=== PATIENT | male | born 1975 | race Caucasian/White ===

== ENCOUNTER 2020-12-16 11:36 | Outpatient (REF) | payer OTHER, SELFPAY | END 2020-12-16 11:37 | disposition home or self-care (01) | LOC: HO.LAB 11:36 | PROVIDERS: Visit Provider Internal Medicine | DX: Z20.822 Contact with and (suspected) exposure to COVID-19 (principal) | CPT/HCPCS: C9803; U0003; U0005 ==

== ENCOUNTER 2020-12-27 11:47 | Outpatient (REF) | payer OTHER, SELFPAY | END 2020-12-27 11:48 | disposition home or self-care (01) | LOC: HO.LAB 11:47 | PROVIDERS: Visit Provider Internal Medicine | DX: Z20.822 Contact with and (suspected) exposure to COVID-19 (principal) | CPT/HCPCS: C9803; U0003; U0005 ==

== ENCOUNTER 2023-12-15 11:39 | Emergency (ER) | payer OTHER, SELFPAY ==
--- NOTE | ~2023-12-15 | XR_ITS ---
EXAMINATION: XR CHEST CLINICAL INFORMATION: Shortness of breath COMPARISON: None available. TECHNIQUE: Frontal view of the chest was obtained. FINDINGS: The lungs are well-inflated. There is no gross pneumothorax. No significant pleural effusion. Heart size is normal. Mild degenerative changes in the thoracic spine. No focal consolidation. XR/XR chest 1V IMPRESSION: No evidence of pneumonia. This study was presented today December 15, 2023 for interpretation. Stat results provided at this time as requested by referring provider.
[2023-12-15 11:40] VITALS: BP 124/76; PULSE 87; RESP 20; TEMP 36.8; O2SAT 97; BMI 31.7
--- NOTE | 2023-12-15 11:41 | ED_ITS ---
HPI - SOB/Dyspnea General Chief Complaint: Dyspnea Stated Complaint: sob Time Seen by Provider: 12/15/23 12:06 Source: patient Mode of arrival: ambulatory Limitations: no limitations History of Present Illness ED Provider: Dr. Carlisle HPI Narrative: 48-year-old male otherwise healthy presents to emergency department complaining of cough and shortness of breath past 2 weeks. Patient was initially vaccine for COVID but states he will never get another vaccine after getting for the past several years. He states his father was here week ago he states was diagnosed with pneumonia. He states he also had a target rash 6 months ago and every once in a while has pain to his restroom wants testing for Lyme. Denies any falls or injuries denies chest pain nausea vomiting or diarrhea. MD elicited complaint: shortness of breath and cough Related Data Previous Rx's ?Medication ?Instructions ?Recorded benzonatate 100 mg capsule 100 mg PO BID PRN cough #20 caps 12/15/23 Allergies Allergy/AdvReac Type Severity Reaction Status Date / Time bee pollen [BEE STINGS] Allergy Unknown 1 Verified 12/15/23 11:43 Review of Systems 2 Review of Systems: Review of systems: General: Patient denies any fever chills recent illness or falls Musculoskeletal: Denies back pain or body aches or other injuries HEENT: denies headache, runny nose, ear pain Respiratory: shortness of breath, cough Cardiovascular: no chest pain or palpitations : denies dysuria, frequency Abdomen: no nausea vomiting denies abdominal pain Extremities: no swelling, no pain Skin: no diaphoresis Yes all other systems are reviewed and are negative PMFSH Social History Social History Advance Directives: No Advance Directives Information Provided: Yes Physical Exam 2 Vital Signs: Vital Signs: Last Vital Signs Temp 99.1 F 12/15/23 12:00 Pulse 85 12/15/23 12:00 Resp 20 12/15/23 12:00 BP 106/78 12/15/23 12:00 Pulse Ox 94 12/15/23 12:00 O2 Del Method Room Air 12/15/23 11:40 BMI result Body Mass Index 31.7 General: Well-appearing well-nourished in no signs of distress HEENT: Normocephalic atraumatic Neck: No signs of JVD, no masses no tenderness or lymphadenopathy Cardiovascular: Regular rate and rhythm Respiratory: Clear to auscultation bilaterally Abdomen: Soft nontender no masses Extremities: Normal pedal pulses no signs of edema Skin: Dry warm no rashes Back: No tenderness full ROM Course Course Course Narrative: This is a Rapid Medical Exam performed in triage by Sylvia Perez PA-C. Full HPI, ROS and PE to be performed by primary ED provider. 48 year-old M w/ PMHx presenting to the ED c/o SOB x1.5 weeks w/productive cough. Sx exacerbated by heat. States I think I have Lyme disease States he had the bulls-eye rash a few weeks ago and now has myalgias & hot spots PE: Lungs CTA, talking in complete sentences Plan: EKG, Viral testing, CXR, labs Reevaluation(s) Reevaluation #1: 1254 x-ray labs and swabs were all negative I did explain to the patient that his Lyme will take some time to come back I do feel comfortable discharging the patient home with some Wilmanon Linda Medications Administered Discontinued Medications Generic Name Dose Route Start Last Admin Trade Name Freq PRN Reason Stop Dose Admin Benzonatate 100 mg 12/15/23 12:07 12/15/23 12:40 Benzonatate 100 Mg Capsule PO 12/15/23 12:08 100 mg ONCE ONE Administration Medical Decision Making Medical Decision Making [facility] Narrative: Patient with multiple complaints I do not think are related patient looks well has normal sats clear lung sounds I will continue with the x-ray and labs and swabs as well as Lyme testing I did explain to the patient lab testing come back in several days I do not think he needs to be treated at this time it has been several months I think can follow up with his doctor. Differential Diagnosis Differential Diagnoses: The differential diagnosis associated with the presentation includes For his body aches and bull's eye rash when testing was sent as far as his cough we will give the patient has Tessalon Linda sent for x-ray. For COVID flu and RSV. Lab Data [facility] Lab Attestation statement: I reviewed the patient's lab results. 12/15/23 12:00 12/15/23 12:00 Labs: Lab Results 12/15/23 Range/Units 12:00 WBC 8.5 (4.8-10.8) X10*3/uL RBC 4.95 (4.60-5.80) X10*6/uL Hgb 15.6 (14.0-18.0) g/dl Hct 44.2 (42.0-52.0) % MCV 89.3 (80.0-98.0) fL MCH 31.5 (27.0-33.0) pg MCHC 35.3 (31.0-36.0) g/dl RDW 12.3 (11.0-16.0) % Plt Count 145 L (160-400) X10*3/uL MPV 11.2 (9.4-12.4) fL Immature Gran % (Auto) 0.4 (0.0-0.4) % Neut % (Auto) 64.6 (45-73) % Lymph % (Auto) 26.0 (20-40) % [place] % (Auto) 6.3 (2-11) % Eos % (Auto) 2.2 (0-4) % Baso % (Auto) 0.5 (0-2) % Lymph # (Auto) 2.2 (1.2-4.9) X10*3/uL [place] # (Auto) 0.5 (0.1-1.2) X10*3/uL Eos # (Auto) 0.2 (0.0-0.4) X10*3/uL Baso # (Auto) 0.0 (0.0-0.2) X10*3/uL Abs Immat Gran (auto) 0.03 (0.00-0.03) X10*3/uL Absolute Neuts (auto) 5.5 (2.0-8.3) x10*3/uL Absolute Nucleated RBC 0.000 (0.0-0.012) X10*3/uL Nucleated RBC % (auto) 0.0 (0.0-0.2) /100WBC Sodium 139 (135-145) mmol/L Potassium 4.5 (3.3-5.1) mmol/L Chloride 106 (96-108) mmol/L Carbon Dioxide 26 (22-29) mmol/L Anion Gap 12 (12-20) BUN 12 (9-16) mg/dL Creatinine 0.98 (0.5-1.4) mg/dL Estim Creat Clear Calc 119.2 Estimated GFR > 60 Random Glucose 116 H (60-115) mg/dL Calcium 9.6 (8.4-10.2) mg/dL Magnesium 2.2 (1.6-2.6) mg/dL Total Bilirubin 0.6 (0.0-1.0) mg/dL Direct Bilirubin 0.2 (0.0-0.5) mg/dL AST 24 (5-37) U/L ALT 18 (0-40) U/L Alkaline Phosphatase 107 (39-117) U/L Troponin I High Sens < 2.7 (<3.5-35.0) ng/L Total Protein 7.8 (6.5-8.0) g/dL Albumin 4.4 (3.5-5.0) g/dL Influenza Type A (PCR) NEGATIVE (Negative) Influenza Type B (PCR) NEGATIVE (Negative) RSV RNA Qual (PCR) NEGATIVE (Negative) SARS-CoV-2 RNA (RT-PCR) NEGATIVE (Negative) Independent Interpretation I performed an independent interpretation of an: Plain X-Ray Radiology Impression Discussion of test interpretation with radiology: I have reviewed the radiologist's reading. Independent Historian Clinical information obtained from an independent historian. History obtained from or confirmed by: Other External Record Review Patient has never been here before there was no previous records to review Discharge Plan Discharge Clinical Impression: Cough, Bronchitis Patient Disposition: Home, Self-Care Instructions: Acute Bronchitis (ED), Acute Cough (ED) Additional Instructions: You were seen today for a rash 6 months ago with intermittent wrist pain and a cough for 2 weeks. You had swabs sent for Lyme that take a few days to come back. You can follow up with your doctor or through the patient portal for your results. You had a XR labs and swabs for your cough which were all normal. Please call to follow up with your doctor. Prescriptions: New benzonatate 100 mg capsule 100 mg PO BID PRN (Reason: cough) Qty: 20 0RF Print Language: Lithuanian
--- NOTE | 2023-12-15 11:43 | ECG_ITS ---
Test Reason : SOB Blood Pressure : / mmHG Vent. Rate : 085 BPM Atrial Rate : 085 BPM P-R Int : 170 ms QRS Dur : 078 ms QT Int : 356 ms P-R-T Axes : 048 003 038 degrees QTc Int : 423 ms Normal sinus rhythm Normal ECG When compared with ECG of 12-DEC-2018 11:07, No significant change was found Referred By: Sylvia Perez Electronically Signed By:GLO VANEGAS MD
[2023-12-15 12:00] VITALS: BP 106/78; PULSE 85; RESP 20; TEMP 37.3; O2SAT 94
[2023-12-15 12:05] LABS: MANUAL DIFF FLAG NO
[2023-12-15 12:07] LABS: Basophils Percent Auto 0.5 % (0-2); Eosinophils Absolute Auto 0.2 X10*3/uL (0.0-0.4); Eosinophils Percent Auto 2.2 % (0-4); Hematocrit 44.2 % (42.0-52.0); Hemoglobin 15.6 g/dl (14.0-18.0); Imm Gran Abs Auto 0.03 X10*3/uL (0.00-0.03); Imm Gran Pct Auto 0.4 % (0.0-0.4); Lymphocytes Absolute Auto 2.2 X10*3/uL (1.2-4.9); Mean Corpuscular HGB Conc 35.3 g/dl (31.0-36.0); Mean Corpuscular Hemoglobin 31.5 pg (27.0-33.0); Mean Corpuscular Volume 89.3 fL (80.0-98.0); Mean Platelet Volume 11.2 fL (9.4-12.4); Monocytes Absolute Auto 0.5 X10*3/uL (0.1-1.2); Monocytes Percent Auto 6.3 % (2-11); Neutrophils Absolute Auto 5.5 x10*3/uL (2.0-8.3); Neutrophils Percent Auto 64.6 % (45-73); Platelet Count 145 X10*3/uL (160-400); Red Blood Count 4.95 X10*6/uL (4.60-5.80); Red Cell Distribution Width 12.3 % (11.0-16.0); White Blood Count 8.5 X10*3/uL (4.8-10.8)
[2023-12-15] MEDS: Benzonatate 100 MG CAPSULE PO (12:40)
--- NOTE | 2023-12-15 12:42 | PC.NURSE ---
Medicated per MAR.
[2023-12-15 12:44] LABS: Troponin-I High Sensitivity < 2.7 ng/L (<3.5-35.0)
[2023-12-15 12:47] LABS: Influenza A PCR NEGATIVE (Negative); Influenza B PCR NEGATIVE (Negative); Resp Syncy Virus RNA Qual PCR NEGATIVE (Negative); SARS COV2 PCR INHOUSE NEGATIVE (Negative)
[2023-12-15 12:50] LABS: Alanine Aminotransferase 18 U/L (0-40); Albumin Level 4.4 g/dL (3.5-5.0); Alkaline Phosphatase 107 U/L (39-117); Anion Gap 12 (12-20); Aspartate Amino Transferase 24 U/L (5-37); Bilirubin Direct 0.2 mg/dL (0.0-0.5); Bilirubin Total 0.6 mg/dL (0.0-1.0); Blood Urea Nitrogen 12 mg/dL (9-16); Calcium 9.6 mg/dL (8.4-10.2); Carbon Dioxide 26 mmol/L (22-29); Chloride 106 mmol/L (96-108); Creatinine Clr Calc Pharmacy 119.2; Estimated Glomerular Filt Rate > 60; Glucose Random 116 mg/dL (60-115); Magnesium 2.2 mg/dL (1.6-2.6); Potassium 4.5 mmol/L (3.3-5.1); Sodium 139 mmol/L (135-145); Total Protein 7.8 g/dL (6.5-8.0)
[2023-12-15 13:20] VITALS: BP 106/78; PULSE 85; RESP 20; TEMP 37.3; O2SAT 94
[2023-12-16 12:14] LABS: Lyme Abs Screen <0.90 index
== END 2023-12-15 13:20 | disposition home or self-care (01) ==
PROVIDERS: Physician Assistant; Emergency Provider Student in an Organized Health Care Education/Training Program
DX: J40 Bronchitis, not specified as acute or chronic (principal); R06.02 Shortness of breath; R05.9 Cough, unspecified; Z03.818 Encounter for observation for suspected exposure to other biological agents ruled out; Z79.899 Other long term (current) drug therapy
CPT/HCPCS: 0241U; 36415; 71045; 80048; 80076; 83735; 84484; 85025; 86617; 86618; 93005; 99283; 99284

== ENCOUNTER → 2023-12-15 11:43 | Outpatient (BNV) | payer SELFPAY | PROVIDERS: Emergency Provider Student in an Organized Health Care Education/Training Program; Visit Provider Internal Medicine Cardiovascular Disease | DX: R06.02 Shortness of breath (principal) | CPT/HCPCS: 93010 ==

== ENCOUNTER 2025-02-02 16:30 | Emergency (ER) | payer OTHER, SELFPAY ==
--- NOTE | ~2025-02-02 | CT_ITS ---
CLINICAL HISTORY: R flank pain CT abdomen and pelvis without contrast Comparison: None provided Findings: Hiatal hernia. Cholelithiasis. Hepatomegaly, 20.3 cm. No bowel obstruction, pneumoperitoneum, or pneumatosis. No nephroliths identified. Left renal upper pole cortical scarring. The appendix is within normal limits. Diverticulosis. Prostate is within normal limits. Right inguinal hernia with adipose tissue in lumen, 3.7 x 3 x 9.[address] evidence of incarceration or strangulation. Mild osteopenia. The prostate is hypertrophic, 5.3 cm. IMPRESSION: 1. No acute intraabdominal or pelvic pathology. 2. Hepatomegaly, measuring 20.3 cm. 3. Right inguinal hernia containing adipose tissue, measuring 3.7 x 3 x 9.6 cm, without evidence of incarceration or strangulation. 4. Cholelithiasis. 5. Hypertrophic prostate. 6. Diverticulosis. This document has been electronically signed by: Say Romeo MD on 02/02/2025 22:22:28
--- NOTE | ~2025-02-02 | US_ITS ---
CLINICAL HISTORY: pain Ultrasound scrotum. COMPARISON: None provided. Technique: Real time sonographic imaging, including color-flow imaging, was performed by the mushroom picker. Multiple medical sales representative static images were saved for review. FINDINGS: Right side: Right testicle is normal in size and echotexture.Normal color flow and spectral tracing. No hydrocele or varicocele. Normal right epididymis. Right testicle: 4.8 x 2.6 x 3.6 cm Left side: Left testicle is normal in size and echotexture.Normal color flow and spectral tracing. No hydrocele or varicocele. Epididymal appendix present. Left testicle: 4.8 x 2.5 x 3.2 cm IMPRESSION: 1. No cause for patient's symptoms identified. No evidence of ovarian torsion bilaterally. This document has been electronically signed by: Jax Catalan MD on 02/02/2025 18:47:37
--- NOTE | ~2025-02-02 | US_ITS ---
CLINICAL HISTORY: pain Ultrasound scrotum. COMPARISON: None provided. Technique: Real time sonographic imaging, including color-flow imaging, was performed by the material control supervisor. Multiple real estate representative static images were saved for review. FINDINGS: Right side: Right testicle is normal in size and echotexture.Normal color flow and spectral tracing. No hydrocele or varicocele. Normal right epididymis. Right testicle: 4.8 x 2.6 x 3.6 cm Left side: Left testicle is normal in size and echotexture.Normal color flow and spectral tracing. No hydrocele or varicocele. Epididymal appendix present. Left testicle: 4.8 x 2.5 x 3.2 cm IMPRESSION: 1. No cause for patient's symptoms identified. No evidence of ovarian torsion bilaterally. This document has been electronically signed by: Jax Catalan MD on 02/02/2025 18:47:37
[2025-02-02 16:50] VITALS: BP 128/87; PULSE 95; RESP 18; TEMP 36.7; O2SAT 96; BMI 33.8
--- NOTE | 2025-02-02 16:56 | ED_ITS ---
HPI - Male Genitourinary General Chief complaint: Urogenital-Male Stated complaint: ?kidney issues Time Seen by Provider: 02/02/25 20:33 Source: patient Mode of arrival: ambulatory Limitations: no limitations History of Present Illness ED Provider: Dr. Kiera Doyle HPI Narrative: Patient comes to the emergency room complaining of right testicular pain and right flank pain. Patient states it has been 2 weeks. Patient denies any injuries, denies hematuria or dysuria, denies penile discharge. Patient states that when he looks at himself in the mirror, that right testicle looks retracted. Related Data Previous Rx's ?Medication ?Instructions ?Recorded benzonatate 100 mg capsule 100 mg PO BID PRN cough #20 caps 12/15/23 epinephrine 0.3 mg/0.3 mL 0.3 mg (0.3 mL) IM Q10M PRN 02/02/25 injection, auto-injector (EpiPen anaphylaxis #2 ea 2-Abdiaziz) Allergies Allergy/AdvReac Type Severity Reaction Status Date / Time bee pollen (bee stings) Allergy Anaphylaxis Verified 02/02/25 16:53 Review of Systems 2 Review of Systems: Constitutional : No Weight loss, No Fever, No Chills, No Night Sweats, No Fatigue, No Malaise ENT/Mouth : No Hearing loss, No Ear Pain, No Nasal Congestion, No Sinus Pain, No Hoarseness, No sore throat, No Rhinorrhea, No Swallowing Difficulty Eyes: No Eye Pain, No Swelling, No Redness, No Foreign Body, No Discharge, No Vision Changes Cardiovascular : No Chest Pain, No SOB, No Dyspnea on Exertion, No Orthopnea, No Edema, No Palpitations Respiratory : No Cough, No Sputum, No Wheezing, No Smoke Exposure, No Dyspnea Gastrointestinal : No Nausea, No Vomiting, No Diarrhea, No Constipation, No abdominal Pain, No Hematochezia, No Melena Genitourinary : Complaining of right testicular pain, seems it is a bit higher than the left. No Dysuria, No Urinary Frequency, No Hematuria, No Urinary Incontinence, No Urgency, No Flank Pain, No Urinary Flow Changes, No Hesitancy Musculoskeletal : No joint pain, No Myalgias, No Joint Swelling Skin : No Skin Lesions, No rash Neuro : No Weakness, No Numbness, No Paresthesias, No Loss of Consciousness, No Dizziness, No Headache Psych : No Anxiety/Panic, No Depression, No SI/HI/AH/VH, No Social Issues, Heme/Lymph: No Bruising, No Bleeding,No Lymphadenopathy Endocrine : No Polyuria, No Polydipsia, No Temperature Intolerance [facility] Social History Social History Advance Directives: No Advance Directives Information Provided: No Physical Exam 2 Exam: Exam: Appearance: Alert. Oriented X3. No acute distress. Eyes: Pupils equal, round and reactive to light. ENT: Pharynx normal. Neck: Normal inspection. Neck supple. No lymph nodes noted. No crepitus CVS: Normal heart rate and rhythm. Pulses normal. Normal S1 and S2 Respiratory: No respiratory distress. Breath sounds normal. No Wheezing. No rales Abdomen: Soft and nontender. No rigidity. No distention. : Right testicle does seem to be a bit higher than the left, tenderness to palpation. Skin: Skin warm and dry. Normal skin color. Normal skin turgor. Extremities: No lower extremity edema. No Lacerations. No Rash Neuro: Oriented X 3. No motor deficit. No sensory deficit. Moving all extremities. No slurred speech. CN 2 through 12 grossly intact Psych: calm, cooperative, normal affect Vital Signs: Vital Signs: Last Vital Signs Temp 98.1 F 02/02/25 18:57 Pulse 101 H 02/02/25 18:57 Resp 18 02/02/25 18:57 BP 128/84 02/02/25 18:57 Pulse Ox 98 02/02/25 18:57 O2 Del Method Room Air 02/02/25 18:57 BMI result Body Mass Index 33.8 Course Course Course Narrative: RME, this is a rapid medical exam performed by Jose Armando Read please refer to primary provider for complete H&P- 49-year-old male presents for evaluation of right testicular pain. He feels as though his right testicle had retracted somewhat. Plan for labs urinalysis and an ultrasound to evaluate for testicular torsion. Medical Decision Making Medical Decision Making [facility] Narrative: My interpretation of labs: No significant abnormality in patient's hematology chemistry, no urine abnormality, no blood in the urine Ultrasound: Normal bilateral testicles, no identifiable cause for patient's symptoms. Patient is also complaining of right-sided flank pain. It is possible that patient may be passing a kidney stone? CT scan of the abdomen pending I offered to the patient IV and p.o. medication, patient declined Fifty scan of the abdomen does not show any ureterolithiasis, and a right inguinal hernia containing adipose tissue without evidence of incarceration or strangulation. Patient states that now he does not have pain in the abdomen or in the inguinal canal, complaining mostly of pain in the right testicle and in the right flank Patient is still declining any pain medications other muscle relaxants. Patient states that he just noticed that his EpiPen . 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 Patient requesting a prescription for EpiPen to be sent to his pharmacy Differential Diagnosis Differential Diagnoses: The differential diagnosis associated with the presentation includes (Testicular torsion, epididymitis, ureterolithiasis, pyelonephritis, musculoskeletal pain) Admission/Observation Consideration of admission/observation: Escalation of care including admission/observation considered (Considered in patient's symptoms on discomfort, observation was considered) Lab Data MDM Lab Attestation statement: I reviewed the patient's lab results. 02/02/25 17:53 02/02/25 17:53 Labs: Lab Results 02/02/25 Range/Units 17:53 WBC 9.4 (4.8-10.8) X10*3/uL RBC 4.70 (4.60-5.80) X10*6/uL Hgb 14.9 (14.0-18.0) g/dl Hct 41.7 L (42.0-52.0) % MCV 88.7 (80.0-98.0) fL MCH 31.7 (27.0-33.0) pg MCHC 35.7 (31.0-36.0) g/dl RDW 12.4 (11.0-16.0) % Plt Count 243 D (160-400) X10*3/uL MPV 10.2 (9.4-12.4) fL Immature Gran % (Auto) 0.2 (0.0-0.4) % Neut % (Auto) 59.5 (45-73) % Lymph % (Auto) 30.5 (20-40) % [place] % (Auto) 6.7 (2-11) % Eos % (Auto) 2.2 (0-4) % Baso % (Auto) 0.9 (0-2) % Lymph # (Auto) 2.9 (1.2-4.9) X10*3/uL [place] # (Auto) 0.6 (0.1-1.2) X10*3/uL Eos # (Auto) 0.2 (0.0-0.4) X10*3/uL Baso # (Auto) 0.1 (0.0-0.2) X10*3/uL Abs Immat Gran (auto) 0.02 (0.00-0.03) X10*3/uL Absolute Neuts (auto) 5.6 (2.0-8.3) x10*3/uL Absolute Nucleated RBC 0.000 (0.0-0.012) X10*3/uL Nucleated RBC % (auto) 0.0 (0.0-0.2) /100WBC Sodium 142 (135-145) mmol/L Potassium 4.0 (3.3-5.1) mmol/L Chloride 107 (96-108) mmol/L Carbon Dioxide 26 (22-29) mmol/L Anion Gap 13 (12-20) BUN 14 (9-16) mg/dL Creatinine 1.18 (0.5-1.4) mg/dL Estim Creat Clear Calc 98.2 Estimated GFR > 60 Random Glucose 90 (60-115) mg/dL Calcium 9.4 (8.4-10.2) mg/dL Total Bilirubin 0.4 (0.0-1.0) mg/dL AST 23 (5-37) U/L ALT 26 (0-40) U/L Alkaline Phosphatase 109 (39-117) U/L Total Protein 7.5 (6.5-8.0) g/dL Albumin 4.8 (3.5-5.0) g/dL Urine Color Dark Yellow Urine Appearance Clear Urine pH 5.5 (5.0-9.0) Ur Specific [place] 1.025 (1.005-1.025) Urine Protein Negative (Neg-Trace) mg/dL Urine Glucose (UA) Negative (Negative) mg/dL Urine Ketones Trace (Negative) mg/dL Urine Blood Negative (Negative) Urine Nitrite Negative (Negative) Ur Leukocyte Esterase Negative (Negative) Urine RBC 0-2 (0-2) /HPF Urine WBC 0-5 (0-5) /HPF Ur Squamous Epith Cells 0-2 (0-2) /HPF Urine Bacteria None Seen (None Seen) Hyaline Casts 0-2 (0-2) /LPF Independent Interpretation I performed an independent interpretation of an: Ultrasound and CT Scan Radiology Impression Discussion of test interpretation with radiology: I have reviewed the radiologist's reading. Radiologist Impression: FINDINGS: Right side: Right testicle is normal in size and echotexture.Normal color flow and spectral tracing. No hydrocele or varicocele. Normal right epididymis. Right testicle: 4.8 x 2.6 x 3.6 cm Left side: Left testicle is normal in size and echotexture.Normal color flow and spectral tracing. No hydrocele or varicocele. Epididymal appendix present. Left testicle: 4.8 x 2.5 x 3.2 cm IMPRESSION: 1. No cause for patient's symptoms identified. No evidence of ovarian torsion bilaterally. CT of the abdomen/pelvis Hiatal hernia. Cholelithiasis. Hepatomegaly, 20.3 cm. No bowel obstruction, pneumoperitoneum, or pneumatosis. No nephroliths identified. Left renal upper pole cortical scarring. The appendix is within normal limits. Diverticulosis. Prostate is within normal limits. Right inguinal hernia with adipose tissue in lumen, 3.7 x 3 x 9.[address] evidence of incarceration or strangulation. Mild osteopenia. The prostate is hypertrophic, 5.3 cm. Critical Care Time Critical Care Time Critical Care Time: Yes Total Critical Care Time: 35 Attestation: I have personally provided critical care time. Time includes review of lab data, radiology results, discussion with consultants, and monitoring for potential decompensation. Intervention performed as documented. Discharge Plan Discharge Clinical Impression: Pain in testicle, Flank pain, Medication refill Patient Disposition: Home, Self-Care Instructions: Testicle Pain (ED), Flank Pain (ED) Additional Instructions: Please follow-up with your primary care physician tomorrow. If you have any worsening or new symptoms, please return to the emergency room or call 911 Prescriptions: New epinephrine [EpiPen 2-Abdiaziz] 0.3 mg/0.3 mL auto-injector 0.3 mg IM Q10M PRN (Reason: anaphylaxis) Qty: 2 0RF Rx Instructions: for 2 doses No Action benzonatate 100 mg capsule 100 mg PO BID PRN (Reason: cough) Qty: 20 0RF Print Language: Lao
--- OUTSIDE RECORDS SUMMARY | 2025-02-02 17:43 | XMS_ITS ---
Author Name [facility] Organization Unknown Care Team Organization Name Specialty Phone Email Start Date End Da te [facility] MAHOGANY MENON Primary Care 03/09/2023 12/27/2023 [facility] Michaela Mcneil Primary Care 03/17/2022 12/27/2023
[2025-02-02 17:59] LABS: MANUAL DIFF FLAG NO
[2025-02-02 18:01] LABS: Hematocrit 41.7 % (42.0-52.0); Hemoglobin 14.9 g/dl (14.0-18.0); Imm Gran Abs Auto 0.02 X10*3/uL (0.00-0.03); Imm Gran Pct Auto 0.2 % (0.0-0.4); Lymphocytes Absolute Auto 2.9 X10*3/uL (1.2-4.9); Mean Corpuscular HGB Conc 35.7 g/dl (31.0-36.0); Mean Corpuscular Hemoglobin 31.7 pg (27.0-33.0); Mean Corpuscular Volume 88.7 fL (80.0-98.0); NRBC Abs Auto 0.000 X10*3/uL (0.0-0.012); NRBC Pct Auto 0.0 /100WBC (0.0-0.2); Platelet Count 243 X10*3/uL (160-400); Red Blood Count 4.70 X10*6/uL (4.60-5.80); White Blood Count 9.4 X10*3/uL (4.8-10.8)
[2025-02-02 18:11] LABS: Appearance Urine Clear; Glucose Urine UA Negative (Negative); PH 5.5 (5.0-9.0); Specific Gravity - Urine 1.025 (1.005-1.025)
[2025-02-02 18:22] LABS: Alanine Aminotransferase 26 U/L (0-40); Albumin Level 4.8 g/dL (3.5-5.0); Alkaline Phosphatase 109 U/L (39-117); Anion Gap 13 (12-20); Aspartate Amino Transferase 23 U/L (5-37); Blood Urea Nitrogen 14 mg/dL (9-16); Calcium 9.4 mg/dL (8.4-10.2); Carbon Dioxide 26 mmol/L (22-29); Chloride 107 mmol/L (96-108); Creatinine Clr Calc Pharmacy 98.2; Estimated Glomerular Filt Rate > 60; Potassium 4.0 mmol/L (3.3-5.1); Sodium 142 mmol/L (135-145); Total Protein 7.5 g/dL (6.5-8.0)
[2025-02-02 18:57] VITALS: BP 128/84; PULSE 101; RESP 18; TEMP 36.7; O2SAT 98
[2025-02-02 23:29] VITALS: BP 129/84; PULSE 98; RESP 20; O2SAT 96
[2025-02-03 00:42] VITALS: BP 129/84; PULSE 98; RESP 20; TEMP 36.6; O2SAT 96
== END 2025-02-03 00:43 | disposition home or self-care (01) ==
PROVIDERS: Physician Assistant; Emergency Provider Emergency Medicine
DX: N50.812 Left testicular pain (principal); K44.9 Diaphragmatic hernia without obstruction or gangrene; R10.2 Pelvic and perineal pain; Z79.899 Other long term (current) drug therapy
CPT/HCPCS: 36415; 74176; 76870; 80053; 81001; 85025; 93975; 99284

== ENCOUNTER → 2025-02-02 16:56 | Outpatient (BNV) | payer OTHER, SELFPAY | PROVIDERS: Visit Provider Radiology Diagnostic Radiology | DX: R52 Pain, unspecified (principal) | CPT/HCPCS: 76870 ==